=== PATIENT | female | born 1965 | race Caucasian/White ===

== ENCOUNTER 2017-01-26 08:05 | Inpatient (IN) | payer BC, OTHER ==
[~2017-01-26] VITALS: Ht 170.2 cm; Wt 81.6 kg
[2017-01-26 13:36] VITALS: BP 134/89
[2017-01-26] MEDS ORDERED: MIRALAX 17 GM POWD.PACK PO PRN (13:45)
[2017-01-26] MEDS ORDERED: LORAZEPAM 2 MG/1 ML VIAL IM PRN (13:45)
[2017-01-26] MEDS ORDERED: DICYCLOMINE HCL 20 MG TABLET PO PRN (13:45)
[2017-01-26] MEDS ORDERED: THIAMINE HCL 200 MG/2 ML VIAL IM ONE (13:45)
[2017-01-26] MEDS ORDERED: LOPERAMIDE HCL 2 MG CAPSULE PO PRN ×2 (13:45)
[2017-01-26] MEDS ORDERED: ONDANSETRON 4 MG/2 ML VIAL IM PRN (13:45)
[2017-01-26] MEDS ORDERED: diphenhydrAMINE 50 MG CAPSULE PO PRN (13:45)
[2017-01-26] MEDS ORDERED: ONDANSETRON ODT 4 MG TAB.RAPDIS SL PRN (13:45)
[2017-01-26] MEDS ORDERED: CLONIDINE HCL 0.1 MG TABLET PO PRN (13:45)
[2017-01-26] MEDS ORDERED: LORAZEPAM 1 MG TABLET PO PRN ×2 (13:45)
[2017-01-26] MEDS ORDERED: MAGNESIUM HYDROXIDE 30 ML LIQUID UDC PO PRN (13:45)
[2017-01-26] MEDS ORDERED: ACETAMINOPHEN 325 MG TABLET PO PRN (13:45)
[2017-01-26] MEDS ORDERED: MAG HYDROX/AL HYDROX/SIMETH 30 ML LIQUID UDC PO PRN (13:45)
[2017-01-26 14:38] LABS: BASOPHILS % (AUTO) 0.6 % (0.0-2.0); EOSINOPHILS # (AUTO) 0.2 K/uL (0.0-0.7); EOSINOPHILS % (AUTO) 2.9 % (0.0-7.0); HEMATOCRIT 42.8 % (37-47); HEMOGLOBIN 14.3 G/DL (12.0-16.0); LYMPHOCYTES # (AUTO) 1.6 K/UL (0.8-4.8); LYMPHOCYTES % (AUTO) 24.1 % (20.5-51.5); MEAN CORPUSCULAR HEMOGLOBIN 32.1 UUG (27.0-31.0); MEAN CORPUSCULAR HGB CONC 33 g/dL (32.0-37.0); MEAN CORPUSCULAR VOLUME 96.1 FL (81.0-99.0); MONOCYTES # (AUTO) 0.4 K/UL (0.1-1.30); MONOCYTES % (AUTO) 6.3 % (0.0-11.0); NEUTROPHILS # (AUTO) 4.5 K/UL (1.8-8.9); NEUTROPHILS % (AUTO) 66.1 % (38.5-71.5); PLATELET COUNT (AUTO) 220 K/UL (150-450); RED BLOOD CELL COUNT(AUTO) 4.46 MIL/UL (4.2-5.4); WHITE BLOOD COUNT (AUTO) 6.7 K/UL (4.0-11.2)
[2017-01-26 14:48] LABS: ALANINE AMINOTRANSFERASE 35 U/L (14-59); ALKALINE PHOSPHATASE 107 U/L (50-136); AMYLASE 67 U/L (25-115); ASPARTATE AMINOTRANSFERASE 23 U/L (15-37); BILIRUBIN,TOTAL 0.4 mg/dL (0.2-1.0); CARBON DIOXIDE 30 mmol/L (21-32); CHLORIDE 105 mmol/L (98-107); CREATININE 0.9 mg/dL (0.6-1.3); GLUCOSE 116 mg/dL (74-106); MAGNESIUM 1.9 mg/dL (1.8-2.4); POTASSIUM 3.5 mmol/L (3.5-5.1); TOTAL PROTEIN, SERUM 8.1 g/dL (6.4-8.2); UREA NITROGEN, BLOOD 13 mg/dL (7-18)
[2017-01-26 15:00] LABS: ETHANOL < 3 MG/DL (0-0)
[2017-01-26 15:01] LABS: *AMPHETAMINE, URINE NEGATIVE (NEGATIVE); *BARBITURATE, URINE NEGATIVE (NEGATIVE); *CANNABINOID, URINE NEGATIVE (NEGATIVE); *COCCAINE, URINE NEGATIVE (NEGATIVE); *OPIATE, URINE NEGATIVE (NEGATIVE); *PHENCYCLIDINE SCREEN,URINE NEGATIVE (NEGATIVE); *URINE HCG, QUAL NEGATIVE (NEGATIVE)
[2017-01-26 15:19] LABS: THYROID STIMULATING HORMONE 2.345 mIU/mL (0.358-3.740)
[2017-01-26 16:00] VITALS: BP 136/85
[2017-01-26] MEDS ORDERED: ACYC400T PO (16:07)
[2017-01-26] MEDS ORDERED: IBUP100O18 PO (16:07)
[2017-01-26 20:00] VITALS: BP 147/99
[2017-01-26] MEDS: IBUPROFEN 400 MG TABLET PO PRN (20:28)
[2017-01-26] MEDS ORDERED: LORAZEPAM 1 MG TABLET PO SCH (21:00)
[2017-01-27 08:00] VITALS: BP 126/83
[2017-01-27] MEDS ORDERED: TUBERCULIN,PURIF.PROT.DERIV. 5 TU/0.1 ML TEST ID ONE (09:00)
[2017-01-27] MEDS: FOLIC ACID 1 MG TABLET PO SCH (09:23)
[2017-01-27] MEDS: MULTIVITAMINS,THERAPEUTIC TABLET PO SCH (09:23)
[2017-01-27] MEDS: LORAZEPAM 1 MG TABLET PO SCH ×3 (09:24→20:58)
[2017-01-27] MEDS: THIAMINE HCL 100 MG TABLET PO SCH (09:24)
[2017-01-27 10:08] LABS: HEPATITIS B SURFACE AG Negative (Negative)
[2017-01-27 12:00] VITALS: BP 133/78
[2017-01-27] MEDS: IBUPROFEN 400 MG TABLET PO PRN ×2 (14:10→20:58)
[2017-01-27 16:00] VITALS: BP 136/75
[2017-01-27 20:12] VITALS: BP 133/72
[2017-01-28 00:14] VITALS: BP 132/71
[2017-01-28 04:19] VITALS: BP 127/73
[2017-01-28 08:00] VITALS: BP 135/89
[2017-01-28] MEDS ORDERED: LORAZEPAM 1 MG TABLET PO SCH ×2 (09:00→21:00)
[2017-01-28] MEDS: MULTIVITAMINS,THERAPEUTIC TABLET PO SCH (10:41)
[2017-01-28] MEDS: FOLIC ACID 1 MG TABLET PO SCH (10:41)
[2017-01-28] MEDS: THIAMINE HCL 100 MG TABLET PO SCH (10:41)
[2017-01-28] MEDS: IBUPROFEN 400 MG TABLET PO PRN ×2 (10:46→21:43)
[2017-01-28 12:00] VITALS: BP 134/85
[2017-01-28 16:00] VITALS: BP 148/90
[2017-01-28 20:00] VITALS: BP 144/87
[2017-01-29] VITALS: BP 140/84
[2017-01-29 08:00] VITALS: BP 124/92
[2017-01-29] MEDS ORDERED: LORAZEPAM 1 MG TABLET PO SCH ×2 (09:00)
[2017-01-29] MEDS: THIAMINE HCL 100 MG TABLET PO SCH (09:07)
[2017-01-29] MEDS: MULTIVITAMINS,THERAPEUTIC TABLET PO SCH (09:07)
[2017-01-29] MEDS: FOLIC ACID 1 MG TABLET PO SCH (09:07)
[2017-01-29 12:00] VITALS: BP 134/85
[2017-01-29 16:00] VITALS: BP 135/94
[2017-01-29] MEDS ORDERED: DIPH50CA37 PO (16:10)
[2017-01-29] MEDS ORDERED: GABA-532 PO (16:10)
[2017-01-29] MEDS ORDERED: CLON0.1T14 PO (16:10)
[2017-01-29] MEDS: GABAPENTIN 100 MG CAPSULE PO SCH (19:43)
[2017-01-29] MEDS: IBUPROFEN 400 MG TABLET PO PRN (19:43)
[2017-01-29 20:00] VITALS: BP 135/96
[2017-01-30] MEDS: GABAPENTIN 100 MG CAPSULE PO SCH (09:00)
[2017-01-30] MEDS ORDERED: LORAZEPAM 1 MG TABLET PO SCH (09:00)
[2017-01-30] MEDS: FOLIC ACID 1 MG TABLET PO SCH (09:22)
[2017-01-30] MEDS: MULTIVITAMINS,THERAPEUTIC TABLET PO SCH (09:22)
[2017-01-30] MEDS: THIAMINE HCL 100 MG TABLET PO SCH (09:22)
[2017-01-30] MEDS: IBUPROFEN 400 MG TABLET PO PRN (09:26)
== END 2017-01-30 09:33 | disposition other institution (70) | DRG 895 ==
LOC: SRC 12:42
PROVIDERS: ADMIT Internal Medicine; ATTEND Internal Medicine
PROC: HZ2ZZZZ Detoxification Services for Substance Abuse Treatment (ICD-10-PCS; principal; 2017-01-26)
PROC: HZ31ZZZ Individual Counseling for Substance Abuse Treatment, Behavioral (ICD-10-PCS; 2017-01-28)
PROC: HZ41ZZZ Group Counseling for Substance Abuse Treatment, Behavioral (ICD-10-PCS; 2017-01-28)
DX: F10.230 Alcohol dependence with withdrawal, uncomplicated (principal); I15.9 Secondary hypertension, unspecified; B00.1 Herpesviral vesicular dermatitis; M19.079 Primary osteoarthritis, unspecified ankle and foot; Y90.0 Blood alcohol level of less than 20 mg/100 ml; Z81.1 Family history of alcohol abuse and dependence; Z83.3 Family history of diabetes mellitus; Z80.8 Family history of malignant neoplasm of other organs or systems
CPT/HCPCS: 36415; 70030-TC; 80307; 83735; 84443; 84703; 85025; 86580; 86592; 86705; 86803; 87340; 87806; G0480; J3411; Q0163